=== PATIENT | male | born 2005 | race Caucasian/White ===

== ENCOUNTER 2025-06-02 02:28 | Emergency (ER) | payer OTHER, SELFPAY ==
[2025-06-02 02:40] VITALS: BP 131/76; PULSE 82; RESP 18; TEMP 36.8; O2SAT 98; BMI 26.4
[2025-06-02 03:16] LABS: Appearance Urine Cloudy; Glucose Urine UA Negative (Negative); PH 6.5 (5.0-9.0); Specific Gravity - Urine 1.020 (1.005-1.025); UMIC TRIGGER UACC YES
--- NOTE | 2025-06-02 04:42 | ED_ITS ---
HPI - General Adult General Chief complaint: General Medical Stated complaint: General Medical Time Seen by Provider: 06/02/25 03:57 Source: patient Limitations: no limitations History of Present Illness ED Provider: Sharmaine Martinez PA-C HPI narrative: 19-year-old otherwise healthy male presents with concern for STD. Patient states every time he has sexual intercourse with the his girlfriend, she complains of vaginal pain. The patient denies dysuria, penile discharge, testicular pain or swelling. He has no symptoms, he is not concerned for STD. Related Data Allergies Allergy/AdvReac Type Severity Reaction Status Date / Time No Known Allergies Allergy Verified 06/02/25 02:46 Review of Systems Review of Systems: Yes all other systems are reviewed and are negative Constitutional: Constitutional: Denies fatigue and Denies fever(s) Gastrointestinal: Gastrointestinal: Denies abdominal pain Genitourinary: Genitourinary: Denies genital lesions, Denies genital pain, Denies dysuria, Denies painful ejaculations, Denies penile discharge, Denies scrotal swelling and Denies testicular pain Endocrine: Endocrine: Denies fatigue PMF Past Medical History Attestation statement: The following information was validated with the patient. Social History Social History Advance Directives: No Advance Directives Information Provided: Yes Physical Exam ED Vital Signs: Vital Signs - 24 hr 06/02/25 02:40 Temperature 98.3 F Pulse Rate 82 Respiratory Rate 18 Blood Pressure 131/76 Pulse Oximetry 98 Oxygen Delivery Method Room Air BMI result Body Mass Index 26.4 Const Other: Alert well-appearing Orientation/consciousness: patient oriented x3 Resp Effort & Inspection: normal respiratory effort Cardio Other: Normal peripheral perfusion Skin Other: Warm dry no rash Neuro General: patient oriented x3, gait normal, no focal motor deficits and CN's II- XI intact bilaterally Psych Other: Cooperative Medical Decision Making Medical Decision Making [facility] Narrative: 19-year-old otherwise healthy male presents with concern for STD. Patient states every time he has sexual intercourse with the his girlfriend, she complains of vaginal pain. The patient denies dysuria, penile discharge, testicular pain or swelling. He has no symptoms, he is not concerned for STD. No chronic issues History: Per patient I have considered the following differential diagnoses: Urethritis, gonorrhea, chlamydia, UTI, trich, syphilis, HSV Plan: The patient is here for advice. The patient himself has no symptoms of STD, he thought that there ?must be something that he was doing to cause his girlfriend's vaginal pain?. UA and gonorrhea chlamydia were obtained, GC chlamydia pending, patient is aware that he can access the patient portal. I explained to the patient that some women develop vaginal irritation after intercourse, that their vaginal felisha can easily become disrupted. I suggested that she requires assessment. I have independently reviewed the following tests: Labs: Urine not infected, GC chlamydia pending. Differential Diagnosis Differential Diagnoses: The differential diagnosis associated with the presentation includes See medical decision-making Admission/Observation Consideration of admission/observation: Escalation of care including admission/observation considered Not applicable Lab Data MDM Lab Attestation statement: I reviewed the patient's lab results. Labs: Lab Results 06/02/25 Range/Units 03:06 Urine Color Yellow Urine Appearance Cloudy Urine pH 6.5 (5.0-9.0) Ur Specific [place] 1.020 (1.005-1.025) Urine Protein Negative (Neg-Trace) mg/dL Urine Glucose (UA) Negative (Negative) mg/dL Urine Ketones Trace (Negative) mg/dL Urine Blood Negative (Negative) Urine Nitrite Negative (Negative) Ur Leukocyte Esterase Trace H (Negative) Urine RBC 0-2 (0-2) /HPF Urine WBC 0-5 (0-5) /HPF Ur Squamous Epith Cells 0-2 (0-2) /HPF Urine Bacteria None Seen (None Seen) Hyaline Casts 0-2 (0-2) /LPF Discharge Plan Discharge Clinical Impression: Unprotected sexual intercourse Patient Disposition: Home, Self-Care Instructions: Safe Sex Practices for Adolescents (ED) Additional Instructions: Your urine sample is not infected, you have tests pending for gonorrhea and chlamydia, you can access the patient portal for results. It sounds as if you have absolutely no risk factors for STD. Stand Alone Forms: Work/School Release Print Language: Lithuanian
[2025-06-02 05:33] VITALS: BP 131/76; PULSE 82; RESP 18; TEMP 36.8; O2SAT 98
[2025-06-02 08:35] LABS: CT PCR Urine NOT DETECTED (Not Detect.); NG PCR Urine NOT DETECTED (Not Detect.)
== END 2025-06-02 05:33 | disposition home or self-care (01) ==
PROVIDERS: Emergency Provider Emergency Medicine
DX: Z20.2 Contact with and (suspected) exposure to infections with a predominantly sexual mode of transmission (principal); Z79.899 Other long term (current) drug therapy
CPT/HCPCS: 81001; 87491; 87591; 99282; 99283